=== PATIENT | male | born 1985 | race American Indian/Alaskan Native ===

== ENCOUNTER 2016-12-10 21:54 | Emergency (ER) | payer SELFPAY ==
--- NOTE | 2016-12-11 04:30 | Emergency Department Report ---
Upper Extremity - HPI Chief Complaint: Extremity Injury, Upper Stated Complaint: RT HAND INJURY Time Seen by Provider: 12/11/16 04:22 Upper Extremity: Right Hand Occurred When: 2 Days Mechanism: Fall Severity: moderate Symptoms: Yes Pain with Movement, Yes Deformity, Yes Limited Range of Movement, Yes Swelling, No Numbness, No Weakness, No Bruising/Ecchymosis, No Laceration or Abrasion Other History: 31-year-old male past medical history none presents with complaint of right hand pain and swelling status post fall 2 days ago. Patient states that he fell forward onto an outstretched hand. Denies any other injuries. ED Review of Systems ROS: Stated complaint: RT HAND INJURY Other details as noted in HPI Constitutional: denies: chills, fever Eyes: denies: eye pain, eye discharge, vision change ENT: denies: ear pain, throat pain Respiratory: denies: cough, shortness of breath, wheezing Cardiovascular: denies: chest pain, palpitations Endocrine: no symptoms reported Gastrointestinal: denies: abdominal pain, nausea, diarrhea Genitourinary: denies: urgency, dysuria Musculoskeletal: as per HPI. denies: back pain, joint swelling, arthralgia Skin: denies: rash, lesions Neurological: denies: headache, weakness, paresthesias Psychiatric: denies: anxiety, depression Hematological/Lymphatic: denies: easy bleeding, easy bruising ED Past Medical Hx - Past Medical History Previous Medical History?: No - Surgical History Past Surgical History?: No - Social History Smoking Status: Current Every Day Smoker Substance Use Type: Alcohol - Medications Home Medications: Home Medications Medication Instructions Recorded Confirmed Last Taken Type HYDROcodone/APAP 5-325 [[place] 1 each PO Q6HR PRN #12 tablet 08/31/13 Unknown Rx 5-325 mg TAB] Cephalexin [Keflex] 500 mg PO QID #40 capsule 08/04/14 Unknown Rx Ibuprofen [Motrin] 600 mg PO Q8H PRN #30 tablet 08/04/14 Unknown Rx Acetaminophen/Codeine [Tylenol 1 tab PO Q6H PRN #14 tab 12/11/16 Unknown Rx /Codeine # 3 tab] Naproxen [Naprosyn TAB] 500 mg PO BID PRN #30 tablet 12/11/16 Unknown Rx Upper Extremity Exam - Exam General: Vital signs noted. No distress. Alert and acting appropriately. Head and Torso: No HEENT Abnormality, No Neck Tenderness, No Chest/Lungs Abnormality, No Abdominal Tenderness, No Back Tenderness Shoulder Exam: Yes Normal Range of Motion in Shoulder, No Shoulder Tenderness, No Clavicle Tenderness, No Shoulder Deformity, No AC Joint Tenderness Arm Exam: No Arm/Humerus Tenderness, No Arm Deformity Elbow: No Elbow Tenderness, No Normal Range of Motion in Elbow, No Elbow Deformity Forearm: No Forearm Tenderness, No Forearm Deformity, No Pain with Pronation, No Pain with Supination Wrist: Yes Normal ROM in Wrist, No Wrist Tenderness, No Wrist Deformity, No Snuffbox Tenderness, No Pain with Axial Thumb Compression Hand: Yes Hand Tenderness, Yes Hand Deformity, Yes Normal ROM in Digit(s) ( range of motion fingers intact), No Digit Tenderness, No Digit(s) Deformity, No Tendon Dysfunction CMS Exam: Yes Normal Distal Pulses (distal capillary refill radial and brachial pulses intact), Yes Normal Capillary Refill, Yes Normal Distal Sensation, No Broken Skin Hand L/R Back: 1 - Significant swelling mid hand region and metacarpal region ED Course Vital Signs 12/10/16 22:46 Temperature 98.7 F Pulse Rate 99 H Respiratory 20 Rate Blood Pressure 141/94 O2 Sat by Pulse 100 Oximetry ED Medical Decision Making - Medical Decision Making A/P: Right Hand fracture 1-patient placed in a large volar/ulnar gutter splint encompassing fingers at PIP his MCPs and wrist stretching to mid forearm 2-orthopedics follow-up. I emphasized the importance of orthopedic f/u to the patient. 3-naproxen when necessary for pain 4-distal capillary refill, distal finger sensation and finger ROM intact Critical care attestation.: If time is entered above; I have spent that time in minutes in the direct care of this critically ill patient, excluding procedure time. ED Disposition Clinical Impression: Hand fracture, right Qualifiers: Encounter type: initial encounter Fracture type: closed Qualified Code(s): S62.91XA - Unspecified fracture of right wrist and hand, initial encounter for closed fracture Disposition: DISCHARGED TO HOME OR SELFCARE Is pt being admited?: No Does the pt Need Aspirin: No Condition: Stable Instructions: Hand Fracture (ED), Splint Care (ED) Prescriptions: Acetaminophen/Codeine [Tylenol /Codeine # 3 tab] 1 tab PO Q6H PRN #14 tab PRN Reason: Pain Naproxen [Naprosyn TAB] 500 mg PO BID PRN #30 tablet PRN Reason: Pain Referrals: BRITT HARDY MD [Staff Physician] - 3-5 Days [facility] [Provider Group] - 3-5 Days Forms: Work/School Release Form(ED) Time of Disposition: 04:34
[2016-12-11] MEDS ORDERED: NORCO 5/325 PO ONE (04:33)
[2016-12-11 04:56] VITALS: BP 155/95
--- NOTE | 2016-12-11 09:25 | XRay Report ---
Right 3 views: History: Fracture and swelling. Finding: Spiral fracture noted the proximal aspect of the diaphysis of third and fourth metacarpal. No dislocation. Impression: Fracture third and fourth metacarpal.
== END 2016-12-11 04:57 | disposition home or self-care (01) ==
LOC: ED 21:54
DX: S62.91XA Unspecified fracture of right hand, initial encounter for closed fracture (principal); F17.200 Nicotine dependence, unspecified, uncomplicated; W18.30XA Fall on same level, unspecified, initial encounter; Y93.9 Activity, unspecified; Y92.9 Unspecified place or not applicable; Y99.9 Unspecified external cause status
CPT/HCPCS: 99283